=== PATIENT | male | born 1995 ===

== ENCOUNTER 2025-03-31 08:18 | Emergency (ER) | payer SELFPAY | END 2025-03-31 10:37 | disposition home or self-care (01) | LOC: ERS 08:18 | DX: S62.336A Displaced fracture of neck of fifth metacarpal bone, right hand, initial encounter for closed fracture (principal); I10 Essential (primary) hypertension; W22.8XXA Striking against or struck by other objects, initial encounter | CPT/HCPCS: 29130 ==